=== PATIENT | female | born 1945 | race Caucasian/White ===

== ENCOUNTER → 2016-07-19 | Day surgery (SDC) | payer MEDICARE, OTHER ==
[~2016-07-19] VITALS: Ht 152.4 cm; Wt 65.8 kg
[~2016-07-19] MED LIST: CALTTAB11 PO; CENTTAB47 PO; CYCL10TA PO; FISH100049 PO; LIDOCAINE 1% SDV INJ 30 ML VIAL As Ordered ONE; LIDOCAINE 1% SDV INJ 30 ML VIAL XX ONE; LIDOCAINE 2% INJ 100 MG/5 ML SDV (FOR ANES.) As Ordered ONE; LR 1,000 ML IV SCH; MIDAZOLAM INJ 2 MG/2 ML VIAL (J2250) As Ordered ONE; ONDANSETRON 4MG/2ML VIAL (J2405) As Ordered ONE; PROA1AER INH; PROPOFOL 200 MG/20 ML VIAL As Ordered ONE; ROSU10TA PO; SERT-141 PO; TRAM-533 PO; TRAZ100T4 PO; VITA100066 PO; VITA500T53 PO; ceFAZolin 1GM INJ (J0690) As Ordered ONE; ceFAZolin 1GM INJ (J0690) IR ONE; dexameTHASONE 4 MG/ML 1ML VIAL (J1100) As Ordered ONE; fentaNYL 100 MCG/2 ML INJECTION (J3010) As Ordered ONE
--- NOTE | 2016-07-19 09:44 | REP ---
FLUOROSCOPIC GUIDANCE FOR INTERSTIM PLACEMENT: 07/19/2016. Clinical history: Incontinence. No prior study. Findings: Two images from C-arm fluoroscopy provided to Dr. Chisholm of the gynecology division for InterStim replacement noted. The lead projects through the left sacral foramen into the presacral space seen on cross-table lateral and prone PA fluoroscopy. Fluoroscopy time: 1 minute 7 seconds. Signed by George Jimenez MD 07/19/2016 10:06 A
[2016-07-19 10:25] VITALS: BP 142/72
--- NOTE | 2016-07-19 18:26 | RO ---
DATE OF PROCEDURE: 07/19/2016 PREPROCEDURE DIAGNOSIS: Urinary and fecal incontinence. POSTPROCEDURE DIAGNOSIS: Urinary and fecal incontinence. OPERATIVE PROCEDURE: InterStim Stage I. SURGEON: Ella Chisholm MD SPINNING FRAME TENDER: ANESTHESIA: Sedation and local. BRIEF DESCRIPTION OF PROCEDURE AND FINDINGS: Beth was brought to the operating room where she was positioned and prepped and draped in the usual sterile fashion and given sedation. Then, after appropriate positioning, identification and measuring of the landmarks we then numbed the region over the posterior left sacrum and using the needle, proceeded to work to place the needle along the medial aspect of third foramen. For this patient there was definitely some palpable arthritis and we in fact had to place the needle a few times in order to get a good response, but with some effort we were able to place a third foramen needle with a good response with testing and identification of location with x-ray. We then used the curved stylet in tined lead to angle the lead to get the best response. I worked on this a couple of times for this patient and then were able to get a good response and show lack of movement with deployment of the tines under continuous x-ray and then final position x-rays were taken when she had tested with good response. We then brought the lead out to the electronic imaging system operator in a site in the left buttock preparing for the eventual generator site should she end up with a successful test. We then joined to the electronic imaging system operator, irrigated this pocket of course copiously with antibiotic fluid and made sure we had a good hemostasis with the Bovie as needed and then extended out towards the left flank with the extension to hook to the external generator. We closed a two layer closure in the future pocket site and then used #3-0 Vicryl at the skin and all the sites and dry sterile dressings were then applied. Dry sterile dressings were then applied. Estimated blood loss: About 5 mL. Fluid replacement: Crystalloid. Complications: None Condition and disposition: Beth tolerated the procedure well and was recovering in the recovery room in good condition.
== END | disposition home or self-care (01) ==
LOC: M SDC 05:50
PROVIDERS: ATTEND Obstetrics & Gynecology
DX: R32 Unspecified urinary incontinence (principal); R15.9 Full incontinence of feces; J45.909 Unspecified asthma, uncomplicated; E78.00 Pure hypercholesterolemia, unspecified; M54.9 Dorsalgia, unspecified; Z87.440 Personal history of urinary (tract) infections; Z88.1 Allergy status to other antibiotic agents; Z88.2 Allergy status to sulfonamides; Z88.3 Allergy status to other anti-infective agents; Z91.040 Latex allergy status; Z91.011 Allergy to milk products; Z79.899 Other long term (current) drug therapy; Z98.84 Bariatric surgery status
CPT/HCPCS: 64581; 76000; C1767; C1894; C1897; J0690; J1100; J2250; J2405; J3010

== ENCOUNTER → 2016-07-26 | Day surgery (SDC) | payer MEDICARE, OTHER ==
[~2016-07-26] VITALS: Ht 152.4 cm; Wt 66.0 kg
[~2016-07-26] MED LIST changes: -ONDANSETRON 4MG/2ML VIAL (J2405) As Ordered ONE; -ceFAZolin 1GM INJ (J0690) IR ONE; +ceFAZolin 1GM INJ (J0690) XX ONE; -dexameTHASONE 4 MG/ML 1ML VIAL (J1100) As Ordered ONE
[2016-07-26 11:45] VITALS: BP 136/74
--- NOTE | 2016-07-26 16:08 | RO ---
DATE OF PROCEDURE: 07/26/2016 PREPROCEDURE DIAGNOSIS: Fecal and urinary incontinence with previous successful stage I InterStim. POSTPROCEDURE DIAGNOSIS: Fecal and urinary incontinence with previous successful stage I InterStim. OPERATIVE PROCEDURE: Stage II InterStim with implant of generator and programming. SURGEON: Ella Chisholm MD CREATIVE CONSULTANT: ANESTHESIA: Monitored anesthesia care (MAC) with local. DESCRIPTION OF PROCEDURE: Beth was brought to the operating room where she was positioned prone as is usual with the area prepped and draped and then sedation given, and it was numbed with 1% lidocaine without and after appropriate pause to the let the lidocaine work, an incision was made over the line of the phytopathology teacher site. The sutures were removed. The connection to the extension was elevated through the wound. The cable to the extension was transected and it was removed, then we removed the boot and unscrews the portion of the extension that remained, then connected the generator being sure to get the blue portion far enough in and to carefully screw it down. We then numbed the pocket some more, cauterized for hemostasis, irrigated with antibiotic irrigation and placed the generator. Tested for impotence and after passing the test, the pocket was secured, again irrigated. The skin closed and dry sterile dressing then applied. The procedure then ended. ESTIMATED BLOOD LOSS: 2 mL or less. FLUIDS REPLACED: Crystalloid. COMPLICATIONS: None. CONDITION AND DISPOSITION: Beth tolerated the procedure well and was recovering in the recovery room in good condition.
== END | disposition home or self-care (01) ==
LOC: M SDC 07:29
PROVIDERS: ATTEND Obstetrics & Gynecology
DX: R32 Unspecified urinary incontinence (principal); R15.9 Full incontinence of feces; J45.909 Unspecified asthma, uncomplicated; E78.00 Pure hypercholesterolemia, unspecified; M54.9 Dorsalgia, unspecified; Z87.440 Personal history of urinary (tract) infections; Z88.1 Allergy status to other antibiotic agents; Z88.2 Allergy status to sulfonamides; Z88.3 Allergy status to other anti-infective agents; Z91.040 Latex allergy status; Z91.011 Allergy to milk products; Z79.899 Other long term (current) drug therapy; Z98.84 Bariatric surgery status
CPT/HCPCS: 64590; C1787; J0690; J2250; J3010

== ENCOUNTER 2023-12-27 10:16 | Observation (INO) | payer MEDICARE ==
[~2023-12-27] VITALS: Ht 154.9 cm; Wt 71.7 kg
[~2023-12-27 10:16] MED LIST changes: +ALBU6.7H6 INH; +ALBU8.5H INH; +BUDE10.2 INH; +CETI10TA PO; +CITRTAB18 PO; +CRES10TA PO; +CVS5000S2 PO; +CYCL-707 PO; -CYCL10TA PO; +CYCL5TAB PO; +FAMO20TA5; +HEPARIN SOD (PORCINE) 5000UNITS/ML 1ML VIAL/SYRINGE ONE; +HEPARIN SOD (PORCINE) 5000UNITS/ML 1ML VIAL/SYRINGE SQ ONE; -LIDOCAINE 1% SDV INJ 30 ML VIAL As Ordered ONE; -LIDOCAINE 1% SDV INJ 30 ML VIAL XX ONE; -LIDOCAINE 2% INJ 100 MG/5 ML SDV (FOR ANES.) As Ordered ONE; +LISI30TA4 PO; -LR 1,000 ML IV SCH; -MIDAZOLAM INJ 2 MG/2 ML VIAL (J2250) As Ordered ONE; +OMEP20TA2 PO; -PROA1AER INH; +PROAAER10 INH; -PROPOFOL 200 MG/20 ML VIAL As Ordered ONE; -ROSU10TA PO; +ROSU10TA61 PO; +SYMB16INH; +TRAZ-257 PO; -TRAZ100T4 PO; +VITA500079 PO; +VITA500T17 PO; -VITA500T53 PO; +ZYRTTAB8 PO; -ceFAZolin 1GM INJ (J0690) As Ordered ONE; -ceFAZolin 1GM INJ (J0690) XX ONE; -fentaNYL 100 MCG/2 ML INJECTION (J3010) As Ordered ONE
[2023-12-27] MEDS ORDERED: propofoL 200 MG/20 ML VIAL As Ordered ONE (11:55)
[2023-12-27] MEDS: LR 1,000 ML IV SCH ×2 (11:55→23:28)
[2023-12-27] MEDS ORDERED: MIDAZOLAM INJ 2MG/2ML VIAL As Ordered ONE (11:55)
[2023-12-27] MEDS ORDERED: SUGAMMADEX SODIUM 500 MG/5 ML VIAL (BRIDION) As Ordered ONE (11:55)
[2023-12-27] MEDS ORDERED: ROCURONIUM BROMIDE 50MG/5ML VIAL As Ordered ONE (11:55)
[2023-12-27] MEDS ORDERED: ACETAMINOPHEN 1000MG 100ML IV BAG As Ordered ONE (11:55)
[2023-12-27] MEDS ORDERED: ONDANSETRON 4MG 2ML VIAL As Ordered ONE (11:55)
[2023-12-27] MEDS ORDERED: LIDOCAINE 2% 100MG/5ML SDV (FOR ANES.) As Ordered ONE (11:55)
[2023-12-27] MEDS ORDERED: fentaNYL 250 MCG/5 ML INJECTION As Ordered ONE (11:55)
[2023-12-27] MEDS ORDERED: dexmedeTOMIDine (4MCG/ML)200MCG/50ML BTL (PRECEDEX) As Ordered ONE (11:56)
[2023-12-27] MEDS: ceFAZolin SOD 2 GM in IV 1 EA IV ONE (14:35)
[2023-12-27] MEDS ORDERED: ePHEDrine SULFATE 25 MG/5 ML(5MG/ML) SYRINGE As Ordered ONE (14:53)
[2023-12-27] MEDS ORDERED: PHENYLephrine 500MCG 5ML (100MCG/ML) SYRINGE As Ordered ONE (14:53)
[2023-12-27] MEDS: GENTAMICIN SULF 80MG/2ML VIAL As Ordered ONE (15:08)
[2023-12-27] MEDS: ceFAZolin 1GM VIAL As Ordered ONE (15:09)
[2023-12-27] MEDS ORDERED: METOCLOPRAMIDE INJ 10MG/2ML VIAL As Ordered ONE (15:35)
[2023-12-27] MEDS ORDERED: HYDROmorphone HCL 2MG/ML 1ML VIAL As Ordered ONE (15:42)
[2023-12-27] MEDS ORDERED: fentaNYL 100 MCG/2 ML INJECTION IV PRN (17:05)
[2023-12-27] MEDS ORDERED: ONDANSETRON 4MG 2ML VIAL IV PRN ×2 (17:05→17:55)
[2023-12-27] MEDS ORDERED: PERCOCET 5MG/325MG TAB PO PRN (17:55)
[2023-12-27] MEDS ORDERED: traMADol 50 MG TAB PO PRN (17:55)
[2023-12-27] MEDS ORDERED: ALBUTEROL 90 MCG/ACT 8GM HFA INHALER INH PRN (17:55)
[2023-12-27] MEDS: oxyCODONE 5MG TAB PO PRN (18:16)
[2023-12-27 18:46] VITALS: BP 149/84; TEMP 97; O2SAT 93
[2023-12-27 19:17] VITALS: BP 148/85; TEMP 97.2; O2SAT 95
[2023-12-27 19:57] VITALS: BP 140/84; TEMP 97.2; O2SAT 95
[2023-12-27] MEDS: traZODone 100 MG TAB PO SCH (21:00)
[2023-12-27] MEDS: SYMBICORT 160/4.5MCG INHALER 6GM INH SCH (21:51)
[2023-12-27 23:13] VITALS: BP 139/83; TEMP 97; O2SAT 96
[2023-12-27] MEDS: ceFAZolin SOD 2 GM in IV 1 EA IV SCH (23:28)
[2023-12-28 00:20] VITALS: BP 136/74; TEMP 96.8; O2SAT 95
[2023-12-28] MEDS: ACETAMINOPHEN TAB 650MG DOSE (2X325MG) PO PRN (02:48)
[2023-12-28 03:58] VITALS: BP 135/71; TEMP 97.2; O2SAT 72
[2023-12-28 08:00] VITALS: BP 158/70; TEMP 98.1; O2SAT 96
[2023-12-28] MEDS: CETIRIZINE (ZyrTEC) 10 MG TAB PO SCH (08:51)
[2023-12-28 08:53] VITALS: BP 108/65
[2023-12-28] MEDS ORDERED: OXYC1TAB23 PO (09:41)
[2023-12-28 11:31] VITALS: BP 102/52; TEMP 97.7; O2SAT 92
== END 2023-12-28 14:20 | disposition home or self-care (01) ==
LOC: M SDC 10:16 → M ED INP 17:53 → M MS5PR 18:35
PROVIDERS: ADMIT Plastic Surgery Surgery of the Hand; ATTEND Plastic Surgery Surgery of the Hand
DX: M54.07 Panniculitis affecting regions of neck and back, lumbosacral region (principal); Z98.84 Bariatric surgery status; Z90.710 Acquired absence of both cervix and uterus; L90.5 Scar conditions and fibrosis of skin; I10 Essential (primary) hypertension; E78.00 Pure hypercholesterolemia, unspecified; K21.9 Gastro-esophageal reflux disease without esophagitis; F41.0 Panic disorder [episodic paroxysmal anxiety]; K76.0 Fatty (change of) liver, not elsewhere classified; J45.909 Unspecified asthma, uncomplicated; R32 Unspecified urinary incontinence; Z91.040 Latex allergy status; Z88.2 Allergy status to sulfonamides; Z88.3 Allergy status to other anti-infective agents; Z88.1 Allergy status to other antibiotic agents; Z88.8 Allergy status to other drugs, medicaments and biological substances; Z79.899 Other long term (current) drug therapy; Z79.51 Long term (current) use of inhaled steroids
CPT/HCPCS: 15830; 88300; 94640; 96361; 96374; 96376; C9290; G0378; J0131; J0665; J0690; J1100; J1170; J1580; J2250; J2371; J2405; J2765; J3010

== ENCOUNTER → 2024-01-14 | Outpatient (CLI) | payer MEDICARE ==
[~2024-01-14] VITALS: Ht 152.4 cm; Wt 66.0 kg
[~2024-01-14] MED LIST changes: +AMOX875T2 PO; -HEPARIN SOD (PORCINE) 5000UNITS/ML 1ML VIAL/SYRINGE ONE; -HEPARIN SOD (PORCINE) 5000UNITS/ML 1ML VIAL/SYRINGE SQ ONE; +LIDOCAINE 1% MDV 20ML VIAL As Ordered ONE; +NS 1,000 ML IV SCH; +OXYC1TAB23 PO; +ceFAZolin SOD 2 GM in IV 1 EA IV ONE
[2024-01-14 10:14] VITALS: TEMP 97.1
[2024-01-14 11:38] VITALS: BP 139/59; O2SAT 98
== END ==
LOC: M IRPRO 10:10
PROVIDERS: ATTEND Physician Assistant
DX: K91.872 Postprocedural seroma of a digestive system organ or structure following a digestive system procedure (principal)

== ENCOUNTER 2024-03-12 09:22 | Day surgery (SDC) | payer MEDICARE, BC ==
[~2024-03-12] VITALS: Ht 152.4 cm; Wt 66.2 kg
[~2024-03-12 09:22] MED LIST changes: -LIDOCAINE 1% MDV 20ML VIAL As Ordered ONE; -NS 1,000 ML IV SCH; +PHENYLEPHRINE 10% OPHTH SOL 5ML OD PRN; +THERTAB52 PO; -ceFAZolin SOD 2 GM in IV 1 EA IV ONE; +fentaNYL 100 MCG/2 ML INJECTION As Ordered ONE
[2024-03-12] MEDS: OFLOXACIN 0.3 % (OCUFLOX) OPTH SOL 5ML OD ONE (09:50)
[2024-03-12] MEDS: LIDOCAINE 3.5 % 1ML OPHTH TOPICAL GEL OU ONE (09:57)
[2024-03-12] MEDS: PHENYLEPHRINE 2.5% OPHTH SOL 2ML OD SCH (09:57)
[2024-03-12] MEDS: TROPICAMIDE 1% OPHTH SOLN 15ML OD SCH (09:57)
[2024-03-12] MEDS: ATROPINE SULFATE 1% OPHTH SOLN 2ML BTL OD SCH (09:57)
[2024-03-12] MEDS: CEFUROXIME 1MG/0.1ML INTRACAMERAL INJ As Ordered ONE (10:50)
[2024-03-12] MEDS: LIDOCAINE 1% SDV 5ML VIAL As Ordered ONE (10:50)
[2024-03-12] MEDS: BSS IRRIG/VANCO(10MG)/TOBRA(5MG)/EPINEPH(1:1000-0.5CC)500ML BAG-ORONLY As Ordered ONE (10:50)
[2024-03-12 11:03] VITALS: BP 164/79; TEMP 98; O2SAT 98
== END 2024-03-12 11:17 | disposition home or self-care (01) ==
LOC: M SDC 09:22
PROVIDERS: ATTEND Ophthalmology
DX: H25.11 Age-related nuclear cataract, right eye (principal); Z88.3 Allergy status to other anti-infective agents; Z88.1 Allergy status to other antibiotic agents; Z88.2 Allergy status to sulfonamides; E73.9 Lactose intolerance, unspecified; Z91.040 Latex allergy status; Z91.048 Other nonmedicinal substance allergy status; Z79.899 Other long term (current) drug therapy
CPT/HCPCS: 66984; J0697; J3010; V2632

== ENCOUNTER 2024-04-09 09:01 | Day surgery (SDC) | payer MEDICARE, BC ==
[~2024-04-09] VITALS: Ht 152.4 cm; Wt 64.7 kg
[~2024-04-09 09:01] MED LIST changes: -CYCL5TAB PO; +CYCL5TAB4 PO; -PHENYLEPHRINE 10% OPHTH SOL 5ML OD PRN; +PHENYLEPHRINE 10% OPHTH SOL 5ML OS PRN; -fentaNYL 100 MCG/2 ML INJECTION As Ordered ONE
[2024-04-09] MEDS ORDERED: fentaNYL 100 MCG/2 ML INJECTION As Ordered ONE (09:56)
[2024-04-09] MEDS: TROPICAMIDE 1% OPHTH SOLN 15ML OS SCH (11:02)
[2024-04-09] MEDS: ATROPINE SULFATE 1% OPHTH SOLN 2ML BTL OS SCH (11:02)
[2024-04-09] MEDS: LIDOCAINE 3.5 % 1ML OPHTH TOPICAL GEL OU ONE (11:02)
[2024-04-09] MEDS: PHENYLEPHRINE 2.5% OPHTH SOL 2ML OS SCH (11:02)
[2024-04-09] MEDS: OFLOXACIN 0.3 % (OCUFLOX) OPTH SOL 5ML OS ONE (11:02)
[2024-04-09] MEDS ORDERED: MIDAZOLAM INJ 2MG/2ML VIAL As Ordered ONE (11:26)
[2024-04-09] MEDS: CEFUROXIME 1MG/0.1ML INTRACAMERAL INJ As Ordered ONE (11:30)
[2024-04-09] MEDS: LIDOCAINE 1% SDV 5ML VIAL As Ordered ONE (11:30)
[2024-04-09] MEDS: BSS IRRIG/VANCO(10MG)/TOBRA(5MG)/EPINEPH(1:1000-0.5CC)500ML BAG-ORONLY As Ordered ONE (11:31)
[2024-04-09 11:40] VITALS: BP 128/62; TEMP 97.4; O2SAT 97
== END 2024-04-09 12:01 | disposition home or self-care (01) ==
LOC: M SDC 09:01
PROVIDERS: ATTEND Ophthalmology
DX: H25.12 Age-related nuclear cataract, left eye (principal); I10 Essential (primary) hypertension; E78.00 Pure hypercholesterolemia, unspecified; J45.909 Unspecified asthma, uncomplicated; K75.81 Nonalcoholic steatohepatitis (NASH); K21.9 Gastro-esophageal reflux disease without esophagitis; Z79.899 Other long term (current) drug therapy; R32 Unspecified urinary incontinence; Z88.1 Allergy status to other antibiotic agents; Z98.41 Cataract extraction status, right eye; Z88.2 Allergy status to sulfonamides; Z88.8 Allergy status to other drugs, medicaments and biological substances; Z98.84 Bariatric surgery status; Z90.710 Acquired absence of both cervix and uterus; Z91.040 Latex allergy status
CPT/HCPCS: 66984; J0697; J2250; J3010; V2632